=== PATIENT | male | born 1965 | race Caucasian/White ===

== ENCOUNTER 2020-03-23 18:22 | Emergency (ER) | payer OTHER, SELFPAY ==
[2020-03-23 18:27] VITALS: BP 126/101; PULSE 107; RESP 18; TEMP 37.1; O2SAT 95; BMI 32.5
--- NOTE | 2020-03-23 18:31 | CTR_ITS ---
PROCEDURE INFORMATION: Exam: CT Abdomen And Pelvis With Contrast Exam date and time: 03/23/2020 7:12 PM Age: 54 years old Clinical indication: Other: Rectal bleed; Prior surgery; Surgery date: 6+ months; Surgery type: Colon resection; Patient HX: C/O gi bleed - bright blood; Additional info: Gi bleeding TECHNIQUE: Imaging protocol: Computed tomography of the abdomen and pelvis with intravenous contrast. Radiation optimization: All CT scans at this facility use at least one of these dose optimization techniques: automated exposure control; mA and/or kV adjustment per patient size (includes targeted exams where dose is matched to clinical indication); or iterative reconstruction. Contrast material: OMNI 300; Contrast volume: 95 ml; Contrast route: INTRAVENOUS (IV); COMPARISON: No relevant prior studies available. RADIATION DOSE METRICS: Total DLP (mGy-cm): 1450.19 FINDINGS: Lungs: Mild tree-in-bud opacities in the right middle lobe. Liver: Mild diffuse fatty infiltration of the liver. Gallbladder and bile ducts: Small stones in the gallbladder which is partially contracted. The bile ducts are normal. Pancreas: Normal. No ductal dilation. Spleen: Normal. No splenomegaly. Adrenals: Normal. No mass. Kidneys and ureters: Mild bilateral perinephric stranding. No calculus or hydronephrosis. Stomach and bowel: 13.9 cm supraumbilical hernia which contains mesenteric fat and a short segment of nonobstructed transverse colon. Additional smaller superior midline fat containing umbilical hernias. Submucosal fatty deposition within the proximal colon. The stomach and small bowel are unremarkable. Mild wall thickening in the distal sigmoid colon and rectum is most likely related to nondistention. Appendix: The appendix is not visualized. Intraperitoneal space: Unremarkable. No free air. No significant fluid collection. Vasculature: Unremarkable. No abdominal aortic aneurysm. Lymph nodes: Unremarkable. No enlarged lymph nodes. Bladder: Mildly distended urinary bladder. Reproductive: Unremarkable as visualized. Bones/joints: Unremarkable. No acute fracture. Soft tissues: Ventral hernias as discussed above. CT/CT abdomen pelvis w con* [id number] IMPRESSION: 1. Mild wall thickening of the distal sigmoid colon and rectum is most likely related to under distension. Mild colitis however cannot be entirely excluded. 2. Tree-in-bud opacities in the right middle lobe could represent endobronchial infection. 3. Large ventral hernia containing fat and nonobstructed transverse colon. 4. Perinephric stranding is most likely chronic and physiologic. Pyelonephritis is not entirely excluded. 5. Cholelithiasis. Radiation Dose CTDIVOL = (mGy): DLP = 1450.19 (mGy-cm)
[2020-03-23] MEDS: sodium chloride 0.9% 1,000 ML 999 ML IV (18:44)
[2020-03-23 18:48] LABS: Basophils % 0.2 %; Eosinophils # 0.1 10^3/uL (0.0-0.8); Eosinophils % 0.6 %; Hematocrit 38.8 % (42.0-52.0); Hemoglobin 13.3 g/dL (11.7-16.6); Lymphocytes % 10.9 %; Mean Corpuscular HGB Conc 34.3 g/dL (30.0-36.0); Mean Corpuscular Hemoglobin 35.6 pg (28.0-34.0); Mean Corpuscular Volume 103.7 fL (80-94); Mean Platelet Volume 9.3 fL (7.4-10.4); Monocytes # 0.9 10^3/uL (0.2-0.9); Monocytes % 9.4 %; Neutrophils # 7.13 10^3/uL (1.8-7.7); Neutrophils % 78.3 %; Nucleated Red Blood Cells % 0 %; Platelet Count 154 10^3/cmm (130-400); Red Blood Count 3.74 10^6/uL (4.1-5.3); Red Cell Distribution Width 13.2 % (12.1-15.1); White Blood Count 9.1 10^3/uL (4.0-10.0)
--- NOTE | 2020-03-23 18:59 | W.ED.GIBLEED ---
HPI - GI Bleed General: Chief complaint: GI Bleed Stated complaint: LOWER GI BLEED Time Seen by Provider: 03/23/20 18:26 History of Present Illness: HPI Narrative: 54-year-old male who drinks about 1/5 of liquor daily. He presents intoxicated, saying that he had an episode of bright red blood per rectum at home. He is very anxious. He has had multiple belly surgeries in the past, former colostomy with 3 anastomosis. He has had some right-sided belly pain. He is had some vomiting. He was hospitalized evidently for similar condition a couple of weeks ago at an outside facility and told he had a ulcer . He denies any fever. Review of Systems General: Reports: ROS unobtainable due to mental status (Intoxicated) Physical Exam Const: GENERAL APPEARANCE: cooperative, anxious, disheveled, ill appearing and odor of alcohol detected ORIENTATION/CONSCIOUSNESS: Yes oriented to person and Yes oriented to place; not oriented to time HENMT: COMMON NORMALS: normocephalic, external ears normal and Normal external nose present HEAD & SCALP: normocephalic FACE & SINUS: normal facial exam NOSE: Normal external nose present and No nasal discharge present EXTERNAL EAR: Yes external ears normal Eye: COMMON NORMALS: Equal, round and reactive pupils present, EOMs intact bilaterally and conjunctivae normal EYELID: eyelids normal CONJUNCTIVA: Yes conjunctivae normal PUPIL: Yes Equal, round and reactive pupils present Neck/C-Spine: GENERAL: No tracheal deviation Chest: COMMONS NORMALS: normal inspection of the chest CHEST: No tenderness Resp: COMMON NORMALS: clear to auscultation bilaterally EFFORT & INSPECTION: No tachypneic, No respiratory distress, No retractions, No uses accessory muscles and No tracheal deviation AUSCULTATION: clear to auscultation bilaterally, no rhonchi, no wheezes and lung sounds not diminished Cardio: COMMON NORMALS: regular rate and regular rhythm RATE: regular rate RHYTHM: regular rhythm HEART SOUNDS: no murmurs PERIPHERAL PULSES: radial pulses present GI: COMMON NORMALS: Soft to palpation INSPECTION: No abdominal distension AUSCULTATION: No Hyperactive bowel sounds present and No Hypoactive bowel sounds present PALPATION: Yes Soft to palpation, Yes Tenderness to palpation present (GI) Details: RLQ, Yes Guarding due to palpation present (GI) and No Rigid due to palpation PERCUSSION: no dullness to percussion and no tympanic to percussion Neuro: SENSORIUM/ORIENTATION: Yes oriented to person, Yes oriented to place and No oriented to time Psych: APPEARANCE: Yes disheveled ATTITUDE: Yes agitated ACTIVITY/MOTOR BEHAVIOR: Yes appropriate eye contact and Yes restless SPEECH: Yes slurred MOOD & AFFECT: Yes anxious, Yes tearful and Yes fearful THOUGHT CONTENT: No Suicidality present and No Homicidality present ATTENTION/CONCENTRATION: Yes attention grossly impaired MEMORY/COGNITION: Yes cognition grossly impaired Course Vital Signs: Vital signs: Vital Signs Temperature 98.8 F 03/23/20 18:27 Pulse Rate 100 03/23/20 21:24 Respiratory Rate 18 03/23/20 21:24 Blood Pressure 156/91 03/23/20 21:24 Pulse Oximetry 96 03/23/20 21:24 MDM - GI Bleed MDM Narrative: Medical decision making narrative: 54-year-old very intoxicated male presents with evidently an episode of GI bleeding at home. He has had no further GI bleeding here. He has a normal white count and normal hemoglobin. His alcohol level is 363. He has mild colitis of the sigmoid on CT. His blood pressures 160s over 90s. He is resting comfortably. He will be allowed home. He will be treated with Cipro and Flagyl for his colitis, which appears mild by CT. He was warned not to drink alcohol while taking Flagyl. Lab Data: Labs: Lab Results 03/23/20 03/23/20 03/23/20 Range/Units 18:36 18:36 18:36 WBC 9.1 (4.0-10.0) 10^3/ uL RBC 3.74 L (4.1-5.3) 10^6/u L Hgb 13.3 (11.7-16.6) g/dL Hct 38.8 L (42.0-52.0) % MCV 103.7 H (80-94) fL MCH 35.6 H (28.0-34.0) pg MCHC 34.3 (30.0-36.0) g/dL RDW 13.2 (12.1-15.1) % Plt Count 154 (130-400) 10^3/c mm MPV 9.3 (7.4-10.4) fL Neut % (Auto) 78.3 % Lymph % (Auto) 10.9 % Archer % (Auto) 9.4 % Eos % (Auto) 0.6 % Baso % (Auto) 0.2 % Neut # (Auto) 7.13 (1.8-7.7) 10^3/u L Lymph # (Auto) 1.0 (0.8-4.8) 10^3/u L Archer # (Auto) 0.9 (0.2-0.9) 10^3/u L Eos # (Auto) 0.1 (0.0-0.8) 10^3/u L Baso # (Auto) 0.0 (0.0-0.1) 10^3/u L Nucleated RBC % (a uto) 0 % Nucleated RBCs # 0.0 /100WBC PT 12.90 (12.1-14.9) SECO NDS INR 0.94 (0.8-1.2) APTT 30.7 (23.9-36.7) SECO NDS Sodium 133 L (136-145) mmol/L Potassium 3.8 (3.5-5.1) mmol/L Chloride 100 (98-107) mmol/L Carbon Dioxide 22 (22-29) mmol/L Anion Gap 14.8 (5-19) BUN 11 (6-20) mg/dL Creatinine 1.1 (0.7-1.2) mg/dL GFR Calculation 70.3 L (90-130) mL/min Glucose 156 H (65-115) mg/dL Calculated Osmolal ity 275 L (285-295) mOsm/k g Calcium 8.6 (8.5-10.5) mg/dL Total Bilirubin 0.2 (0.15-1.2) mg/dL AST 66 H (0-40) U/L ALT 26 (0-41) U/L Alkaline Phosphata se 65 (40-130) IU/L C-Reactive Protein 21.7 H (0.0-4.9) mg/L Total Protein 6.5 L (6.6-8.7) g/dL Albumin 3.1 L (3.5-5.2) g/dL Globulin 3.4 (1.3-4.6) g/dL Urine Color (Yellow) Urine Appearance (CLEAR) Urine pH (5-7) Ur Specific Gravit y (1.005-1.030) Urine Protein (Negative) Urine Glucose (UA) (Normal) Urine Ketones (Negative) Urine Blood (Negative) Urine Nitrate (Negative) Urine Bilirubin (NEGATIVE) Urine Urobilinogen (Negative) mg/dL Ur Leukocyte Mariya ase (Negative) Urine RBC (0-2) /hpf Urine WBC (0-5) /hpf Ur Squamous Epith Cells (0-5) Amorphous Sediment Urine Bacteria (NONE) Urine Mucus Ethyl Alcohol 363 H* (0-10) mg/dL SARS-CoV-2 Ag (Rap id) (Negative) Blood Type Rho(D) Type Antibody Screen 03/23/20 03/23/20 03/23/20 Range/Units 18:36 21:05 21:50 WBC (4.0-10.0) 10^3/ uL RBC (4.1-5.3) 10^6/u L Hgb (11.7-16.6) g/dL Hct (42.0-52.0) % MCV (80-94) fL MCH (28.0-34.0) pg MCHC (30.0-36.0) g/dL RDW (12.1-15.1) % Plt Count (130-400) 10^3/c mm MPV (7.4-10.4) fL Neut % (Auto) % Lymph % (Auto) % Archer % (Auto) % Eos % (Auto) % Baso % (Auto) % Neut # (Auto) (1.8-7.7) 10^3/u L Lymph # (Auto) (0.8-4.8) 10^3/u L Archer # (Auto) (0.2-0.9) 10^3/u L Eos # (Auto) (0.0-0.8) 10^3/u L Baso # (Auto) (0.0-0.1) 10^3/u L Nucleated RBC % (a uto) % Nucleated RBCs # /100WBC PT (12.1-14.9) SECO NDS INR (0.8-1.2) APTT (23.9-36.7) SECO NDS Sodium (136-145) mmol/L Potassium (3.5-5.1) mmol/L Chloride (98-107) mmol/L Carbon Dioxide (22-29) mmol/L Anion Gap (5-19) BUN (6-20) mg/dL Creatinine (0.7-1.2) mg/dL GFR Calculation (90-130) mL/min Glucose (65-115) mg/dL Calculated Osmolal ity (285-295) mOsm/k g Calcium (8.5-10.5) mg/dL Total Bilirubin (0.15-1.2) mg/dL AST (0-40) U/L ALT (0-41) U/L Alkaline Phosphata se (40-130) IU/L C-Reactive Protein (0.0-4.9) mg/L Total Protein (6.6-8.7) g/dL Albumin (3.5-5.2) g/dL Globulin (1.3-4.6) g/dL Urine Color Yellow (Yellow) Urine Appearance Clear (CLEAR) Urine pH 6 (5-7) Ur Specific Gravit y 1.005 (1.005-1.030) Urine Protein 3+ H (Negative) Urine Glucose (UA) Trace H (Normal) Urine Ketones Negative (Negative) Urine Blood 2+ H (Negative) Urine Nitrate Negative (Negative) Urine Bilirubin Neg (NEGATIVE) Urine Urobilinogen Norm (Negative) mg/dL Ur Leukocyte Mariya ase Negative (Negative) Urine RBC 0-4 H (0-2) /hpf Urine WBC 0-4 H (0-5) /hpf Ur Squamous Epith Cells 0-4 H (0-5) Amorphous Sediment Not Reportable Urine Bacteria Trace (NONE) Urine Mucus Trace Ethyl Alcohol (0-10) mg/dL SARS-CoV-2 Ag (Rap id) Negative (Negative) Blood Type A Positive Rho(D) Type Positive Antibody Screen Negative Discharge Plan Discharge Patient Disposition: Home Clinical Impression: Acute lower GI bleeding, Colitis Alcohol intoxication Qualifiers: Complication of substance-induced condition: uncomplicated Qualified Code(s): F10.920 - Alcohol use, unspecified with intoxication, uncomplicated Condition: Stable Prescriptions: New Flagyl 500 mg tablet 500 mg PO Q8H 7 Days Qty: 21 RF: 0 ciprofloxacin HCl 500 mg tablet 500 mg PO BID Qty: 14 RF: 0 Discharge Orders: Discharge Order (Routine); Ordered 03/23/20 Ordered By: Kj Rogers Discharge Diet: Advance as tolerated Discharge Activity: Increase activity as tolerated Patient Instructions: Rectal Bleeding (ED), Alcohol Intoxication (ED), Infectious Colitis (ED) Activity Restrictions/Additional Instructions: Return for fever greater than 100, vomiting liquids or medications, worsening belly pain, continued bleeding from the rectum, other concerning symptoms. You should have your blood checked in 48 hours to see what your blood count is. Staying from alcohol, as with your current medications, they may induce vomiting and muscle pain. 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
[2020-03-23 19:01] LABS: INR 0.94 (0.8-1.2)
[2020-03-23 19:02] LABS: Partial Thromboplastin Time 30.7 SECONDS (23.9-36.7)
[2020-03-23 19:06] LABS: Alanine Aminotransferase 26 U/L (0-41); Albumin Level 3.1 g/dL (3.5-5.2); Alkaline Phosphatase 65 IU/L (40-130); Anion Gap 14.8 (5-19); Aspartate Amino Transferase 66 U/L (0-40); Blood Urea Nitrogen 11 mg/dL (6-20); C Reactive Protein 21.7 mg/L (0.0-4.9); Calcium 8.6 mg/dL (8.5-10.5); Carbon Dioxide 22 mmol/L (22-29); Chloride 100 mmol/L (98-107); Globulin 3.4 g/dL (1.3-4.6); Glomerular Filtration Rate 70.3 mL/min (90-130); Glucose 156 mg/dL (65-115); Osmolality Calculated 275 mOsm/kg (285-295); Potassium 3.8 mmol/L (3.5-5.1); Sodium 133 mmol/L (136-145); Total Bilirubin 0.2 mg/dL (0.15-1.2); Total Protein 6.5 g/dL (6.6-8.7)
[2020-03-23 19:12] LABS: Alcohol Level 363 mg/dL (0-10)
[2020-03-23] MEDS: iohexol 300 mg/mL 100 mL Btl IV (19:28)
[2020-03-23 21:24] VITALS: BP 156/91; PULSE 100; RESP 18; O2SAT 96
[2020-03-23 21:39] LABS: SARS Covid-2 Antigen Negative (Negative)
[2020-03-23 22:15] LABS: Add Urine Microscopic? YES; Bilirubin Urine Neg (NEGATIVE); Blood Urine 2+ (Negative); Glucose Urine UA Trace (Normal); Ketones Urine Negative (Negative); Leukocyte Esterase Urine Negative (Negative); Nitrate Urine Negative (Negative); Protein Urine 3+ (Negative); Specific Gravity, Urine 1.005 (1.005-1.030); Urine Appearance Clear (CLEAR); Urine Color Yellow (Yellow); Urobilinogen Urine Norm (Negative); pH Urine 6 (5-7)
[2020-03-23 22:26] LABS: Add Urine Culture? No; Bacteria Urine TRACE; Mucus Urine TRACE; RBC Urine 0-4 /hpf (0-2); Squamous Epithelial Cell Urine 0-4 (0-5); WBC Urine 0-4 /hpf (0-5)
== END 2020-03-23 22:50 | disposition home or self-care (01) ==
PROVIDERS: Emergency Provider Emergency Medicine
DX: K52.9 Noninfective gastroenteritis and colitis, unspecified (principal); F10.920 Alcohol use, unspecified with intoxication, uncomplicated
CPT/HCPCS: 12345; 74177; 80053; 80307; 81001; 85025; 85610; 85730; 86140; 86850; 86900; 87426; 96360; 99283; J7030; Q9967